=== PATIENT | female | born 1995 | race Asian ===

== ENCOUNTER 2018-05-18 13:31 | Emergency (ER) | payer SELFPAY ==
--- NOTE | 2018-05-18 13:43 | EDPHY ---
H & P Stated Complaint: Swollen lymph nose on R side;sent from [facility] for eval Time Seen by Provider: 05/18/18 13:42 HPI/ROS: HPI: This is a 22-year-old female who presents with Chief Complaint: Swollen lymph node on R side;sent from [facility] for eval Location: Right jaw Quality: Swelling Duration: Since evening Signs and Symptoms: no fever, no nausea, no vomiting, no diarrhea, no urinary symptoms, no chest pain, no shortness of breath, no wheezing, no cough, no sore throat, no neck stiffness, no joint pain, +swollen glands, no ear pain, no rash Timing: Acute, worsening Severity: Moderate Context: Patient is a student at [employer], up-to-date on immunizations, immunocompetent, sent from [facility] with complaints of right jaw preauricular swelling, redness that started evening and has progressively worsened. She has eczema and has been picking at her face over the last several days but reports that her face is actually improved. Over Thanksgi she had of right upper premolar cavity refilled. She denies any fever, upper respiratory symptoms, sore throat, neck stiffness, hearing changes. No exposure to cats. Patient complains of moderate, constant pain in the area that is worsened with chewing. Modifying Factors: None Comment: ROS: A comprehensive 10 system review of systems is otherwise negative aside from elements mentioned in the history of present illness. MEDICAL/SURGICAL/SOCIAL HISTORY: Medical history: Eczema, Depression. LMP 1-7 days ago. Surgical history: Denies Social history:Non-smoker. Family history noncontributory. CONSTITUTIONAL: Slightly anxious young adult female, awake and alert, no obvious distress HEENT: Atraumatic and normocephalic, PERRL, EOMI. Nares patent; no rhinorrhea; no nasal mucosal edema. Right mandible and preauricular area is moderately swollen with redness and warmth. Right external auditory canal is decompressed with 25% occlusion due to the swelling. No perforation/mass seen in the external auditory canal. Tympanic membranes clear. Oropharynx clear, no exudate and moist pink mucosa. Airway patent. No lymphadenopathy. No meningismus. No malocclusion. Tenderness to palpation at the TMJ joint Cardiovascular: Normal S1/S2, type and screen, regular rhythm, without murmur rub or gallop. PULMONARY/CHEST: Symmetrical and nontender. Clear to auscultation bilaterally. Good air movement. No accessory muscle usage. ABDOMEN: Soft, nondistended, nontender, no rebound, no guarding, no peritoneal signs, no masses or organomegaly. No CVAT. EXTREMITIES: 2/2 pulses, strength 5/5, no deformities, no clubbing, no cyanosis or edema. NEUROLOGICAL: no focal neuro deficits. GCS 15. SKIN: Warm and dry, no erythema. no rash. Good capillary refill. Source: Patient, RN/MD Exam Limitations: No limitations - Personal History LMP (Females 10-55): 1-7 Days Ago Current Tetanus Diphtheria and Acellular Pertussis (TDAP): Yes - Medical/Surgical History Hx Asthma: Yes Other PMH: healthy - Social History Smoking Status: Never smoked Constitutional: Initial Vital Signs Temperature (C) 36.7 C 05/18/18 13:33 Heart Rate 101 H 05/18/18 13:33 Respiratory Rate 18 05/18/18 13:33 Blood Pressure 106/71 05/18/18 13:33 O2 Sat (%) 98 05/18/18 13:33 O2 Delivery Mode Room Air Allergies/Adverse Reactions: No Known Allergies Allergy (Unverified 05/18/18 13:36) Home Medications: Medication Instructions Recorded Amoxicillin/Clavulanate Pot 875 mg PO BID #20 tab 05/18/18 [Augmentin 875 MG TAB (*)] Ciclesonide [Alvesco] 160 gm IH DAILY 05/18/18 Montelukast Sodium [Singulair 10 10 mg PO DAILY@1800 05/18/18 mg (*)] Sertraline HCl [Zoloft 25mg (*)] 25 mg PO DAILY 05/18/18 oxyCODONE/APAP 5/325 [Percocet 1 - 2 tab PO Q4H PRN #10 tab 05/18/18 5/325 (*)] Medical Decision Making - Diagnostics Imaging Results: Imaging Impressions Face CT 05/18/18 13:49 Impression: Diffuse swelling and hyperenhancement of the right parotid gland compatible with diffuse glandular inflammation, with mild adjacent reactive lymphadenopathy, without abscess. Results called to Sandy Arevalo PA-C, at 3:00 p.m. ED Course/Re-evaluation: Vital signs reviewed and show mild tachycardia. Patient is immunocompetent. IV access and laboratory studies ordered including serum CT maxillofacial scan ordered to evaluate for dental verses soft tissue abscess verses lymphadenopathy. Given p.o. Percocet and Zofran 4 mg 1426: Labs reviewed. WBC 10 K with left shift and elevated ESR/CRP. 1500: Called by Radiology who advised that CT maxillofacial scan shows right parotid gland swelling diffusely with few small reactive lymph nodes consistent with parotitis. No stone seen. No signs of abscess or fluid collection. 1505: mumps and mono ordered 1727: Spoke with ENT, Dr. Hanson, who recommends outpatient therapy for this patient with a 10 day Augmentin course, push fluids, warm compresses 3-4 times per day with massaging the area and eating sour food and candies. She will see the patient early next week for follow-up. This patient was seen under the supervision of my secondary supervising physician. I evaluated care for this patient with my attending. Discussed this patient with Dr. Davila who did not see the patient. Differential Diagnosis: Differential diagnosis includes but is not limited to facial cellulitis, lymphadenitis, lymphadenopathy, facial abscess, dental abscess. - Data Points Laboratory Results: Laboratory Results 05/18/18 13:55 05/18/18 13:55 05/18/18 05/18/18 05/18/18 13:55 13:55 13:55 WBC RBC Hgb Hct MCV MCH MCHC RDW Plt Count MPV Neut % (Auto) Lymph % (Auto) Winkler % (Auto) Eos % (Auto) Baso % (Auto) Nucleat RBC Rel Count Absolute Neuts (auto) Absolute Lymphs (auto) Absolute Monos (auto) Absolute Eos (auto) Absolute Basos (auto) Absolute Nucleated RBC Immature Gran % Immature Gran # ESR Sodium Potassium Chloride Carbon Dioxide Anion Gap BUN Creatinine Estimated GFR Glucose Calcium C-Reactive Protein Beta HCG, Qual NEGATIVE Specimen Hemolysis Monoscreen Pending Mumps Virus IgG Ab Pending Mumps IgG Ab Index Pending Mumps Virus IgM Ab Pending Mumps IgM Ab Index Pending 05/18/18 05/18/18 13:55 13:55 WBC 10.48 10^3/uL H 10^3/uL (3.80-9.50) RBC 4.60 10^6/uL 10^6/uL (4.18-5.33) Hgb 14.3 g/dL g/dL (12.6-16.3) Hct 41.9 % % (38.0-47.0) MCV 91.1 fL fL (81.5-99.8) MCH 31.1 pg pg (27.9-34.1) MCHC 34.1 g/dL g/dL (32.4-36.7) RDW 12.2 % % (11.5-15.2) Plt Count 271 10^3/uL 10^3/uL (150-400) MPV 11.0 fL fL (8.7-11.7) Neut % (Auto) 81.5 % H % (39.3-74.2) Lymph % (Auto) 9.6 % L % (15.0-45.0) Winkler % (Auto) 7.3 % % (4.5-13.0) Eos % (Auto) 0.7 % % (0.6-7.6) Baso % (Auto) 0.5 % % (0.3-1.7) Nucleat RBC Rel Count 0.0 % % (0.0-0.2) Absolute Neuts (auto) 8.55 10^3/uL H 10^3/uL (1.70-6.50) Absolute Lymphs (auto) 1.01 10^3/uL 10^3/uL (1.00-3.00) Absolute Monos (auto) 0.76 10^3/uL 10^3/uL (0.30-0.80) Absolute Eos (auto) 0.07 10^3/uL 10^3/uL (0.03-0.40) Absolute Basos (auto) 0.05 10^3/uL 10^3/uL (0.02-0.10) Absolute Nucleated RBC 0.00 10^3/uL 10^3/uL (0-0.01) Immature Gran % 0.4 % % (0.0-1.1) Immature Gran # 0.04 10^3/uL 10^3/uL (0.00-0.10) ESR 28 MM/HR H MM/HR (0-20) Sodium 139 mEq/L mEq/L (135-145) Potassium 5.2 mEq/L mEq/L (3.5-5.2) Chloride 105 mEq/L mEq/L (97-110) Carbon Dioxide 21 mEq/l L mEq/l (22-31) Anion Gap 13 mEq/L mEq/L (6-14) BUN 6 mg/dL L mg/dL (7-23) Creatinine 0.5 mg/dL L mg/dL (0.6-1.0) Estimated GFR > 60 Glucose 115 mg/dL H mg/dL (70-100) Calcium 9.6 mg/dL mg/dL (8.5-10.4) C-Reactive Protein 45.0 mg/L H mg/L (<10.0) Beta HCG, Qual Specimen Hemolysis 143 Monoscreen Mumps Virus IgG Ab Mumps IgG Ab Index Mumps Virus IgM Ab Mumps IgM Ab Index Medications Given: Discontinued Medications Ondansetron HCl (Zofran Odt) 4 mg PO EDNOW ONE Stop: 05/18/18 13:50 Last Admin: 05/18/18 14:06 Dose: Not Given Oxycodone/Acetaminophen (Percocet 5/325) 1 tab PO EDNOW ONE Stop: 05/18/18 13:50 Last Admin: 05/18/18 14:06 Dose: Not Given Departure - Departure Disposition: Home, Routine, Self-Care Clinical Impression: Acute parotitis Condition: Good Instructions: Mumps in Adults (ED) Additional Instructions: Take Augmentin as directed. Do not skip a dose. Complete full 10 day course. Consume a minimum of 10-12 glasses of water or electrolyte fluid replacement drinks that include Gatorade, Powerade, Pedialyte. Apply Warm compresses to the area and massage 3-4 times per day. Eat sour foods in candy to stimulate your salivary glands. Call the ENTs office on Sunday at 3:03 a.m. [phone] arrange your follow-up appointment date and time for next week. Referrals: Alivia Hanson MD [Medical Doctor] - As per Instructions Prescriptions: Amoxicillin/Clavulanate Pot [Augmentin 875 MG TAB (*)] 875 mg PO BID #20 tab oxyCODONE/APAP 5/325 [Percocet 5/325 (*)] 1 - 2 tab PO Q4H PRN #10 tab PRN Reason: Pain, Severe
[2018-05-18] MEDS ORDERED: ONDANSETRON DISINTEGRATING 4 MG TAB PO ONE (13:49)
[2018-05-18] MEDS ORDERED: OXYCODONE/APAP 5/325 TAB PO ONE (13:49)
[2018-05-18 14:07] LABS: PLATELET COUNT 271 10^3/uL (150-400)
[2018-05-18] MEDS ORDERED: IOPAMIDOL (ISOVUE-300) 100 ML BTL ONE (14:32)
[2018-05-18] MEDS ORDERED: AMOXICILLIN/CLAVULANATE POT 875/125 MG TAB PO ONE (15:26)
[2018-05-18 15:55] VITALS: BP 109/67
[2018-05-23 15:13] LABS: MUMPS IGG ANTIBODY Negative; MUMPS IGM ANTIBODY NEGATIVE (Negative)
== END 2018-05-18 15:55 | disposition home or self-care (01) ==
DX: K11.20 Sialoadenitis, unspecified (principal)
CPT/HCPCS: 86735-90; Q9967